=== PATIENT | male | born 1940 | race Two or more races ===

== ENCOUNTER 2019-01-21 06:24 | Day surgery (SDC) | payer OTHER ==
[~2019-01-21] VITALS: Ht 190.5 cm; Wt 104.3 kg
[~2019-01-21 06:24] MED LIST: ASPI-404 PO; CHOL500033 PO; HYDR25TA4 PO; IPRA0.03; IPRA1SOL3 IN; LOSA25TA38 PO; METO25TA5 PO; SIMV-8 PO
[2019-01-21] MEDS ORDERED: VERAPAMIL 2.5MG/ML INJ 2ML VIAL IV ONE (07:56)
[2019-01-21] MEDS ORDERED: ANGIOMAX 250 MG VIAL IV ONE (07:56)
[2019-01-21] MEDS ORDERED: MIDAZOLAM HCL 1MG/1ML-2 ML VIAL ONE (07:57)
[2019-01-21] MEDS ORDERED: SODIUM CHL 0.9% 0 ML ONE (07:57)
[2019-01-21] MEDS ORDERED: fentaNYL CITRATE 100 MCG/2 ML VL ONE (07:57)
[2019-01-21] MEDS ORDERED: LIDOCAINE 2%HCL (LOCAL ANESTH.) INJ 20ML MDV ONE (07:58)
[2019-01-21] MEDS ORDERED: IODIXANOL 320MG/ML 100ML BTL IV ONE (07:58)
[2019-01-21] MEDS ORDERED: HEPARIN SODIUM (PORCINE) 5000 UNITS/ML 1ML VIAL ONE (08:16)
[2019-01-21] MEDS ORDERED: ONDANSETRON HCL 4 MG/2 ML VIAL IV PRN (09:00)
[2019-01-21] MEDS ORDERED: HYDROcodone-ACET 5/325MG TAB PO PRN (09:00)
[2019-01-21] MEDS ORDERED: ACETAMINOPHEN 500 MG TAB PO PRN (09:00)
== END 2019-01-21 10:19 | disposition home or self-care (01) ==
LOC: CATH 06:24
PROVIDERS: ATTEND Internal Medicine
DX: R07.89 Other chest pain (principal); I25.10 Atherosclerotic heart disease of native coronary artery without angina pectoris; E78.00 Pure hypercholesterolemia, unspecified; I10 Essential (primary) hypertension; J44.9 Chronic obstructive pulmonary disease, unspecified; F17.210 Nicotine dependence, cigarettes, uncomplicated; Z79.82 Long term (current) use of aspirin; Z79.899 Other long term (current) drug therapy; Z98.890 Other specified postprocedural states
CPT/HCPCS: 93005; 93458; C1769; C1894; J1644; J2250; J3010; Q9967; 99152